=== PATIENT | female | born 1980 | race Caucasian/White ===

== ENCOUNTER 2017-03-08 07:59 | Inpatient (IN) ==
[2017-03-08] MEDS ORDERED: 0.9 % Sodium Chloride 1,000 ML IVC ONE (08:05)
--- NOTE | 2017-03-08 08:06 | Emergency Department Note ---
Disposition Clinical Impression: Headache, Ataxia, Dysphagia, Hyperglycemia Disposition: Admitted As Inpatient Condition: Fair General Adult HPI - General Chief complaint: ED Headache Stated complaint: CARRASCO, Difficulty walking Time Seen by Provider: 03/08/17 08:01 - Related Data Home Medications Medication Instructions Recorded Confirmed GlipiZIDE [Glipizide ER] 20 mg PO 1400 03/08/17 03/08/17 Metformin HCl [Metformin HCl ER] 1,000 mg PO BID 03/08/17 03/08/17 Allergies Allergy/AdvReac Type Severity Reaction Status Date / Time No Known Allergies Allergy Verified 03/08/17 08:18 Course Vital Signs Temperature 97.5 F L 03/08/17 08:01 Pulse Rate 90 03/08/17 08:01 Respiratory Rate 18 03/08/17 08:01 Blood Pressure 132/96 03/08/17 08:01 O2 Sat by Pulse Oximetry 98 03/08/17 08:01 Temperature 97.5 F L 03/08/17 08:01 Pulse Rate 78 03/08/17 09:39 Respiratory Rate 0 03/08/17 10:31 Blood Pressure 0/0 03/08/17 10:31 O2 Sat by Pulse Oximetry 98 03/08/17 09:39 Oxygen Delivery Oxygen Delivery Room Air Medical Decision Making - Lab Data Result diagrams: 03/08/17 08:15 03/08/17 08:15 Lab Results 03/08/17 03/08/17 03/08/17 Range/Units 08:15 08:15 08:15 WBC 8.5 (4.3-11.1) K/mcL RBC 4.68 (3.82-4.97) M/mcL Hgb 12.1 (11.5-15.4) g/dL Hct 37.6 (35.3-44.9) % MCV 80.3 L (83.0-100.0) fL MCH 25.9 L (28.0-33.3) pg MCHC 32.2 (31.6-35.5) g/dL RDW 14.7 H (11.5-14.5) % Plt Count 453 H (140-400) K/mcL MPV 10.2 (9.4-12.4) fL Immature Gran % 0.4 (0-4) % Seg Neutrophils % 70.4 % Lymphocytes % 22.1 % Monocytes % 5.8 % Eosinophils % 0.9 % Basophils % 0.4 % Neutrophils # 6.0 (1.6-8.9) K/mcL Lymphocytes # 1.9 (0.6-4.6) K/mcL Monocytes # 0.5 (0.0-1.3) K/mcL Eosinophils # 0.1 (0.0-0.6) K/mcL Basophils # 0.0 (0.0-0.2) K/mcL Immature Plt Fraction 3.0 (1.1-6.1) % Sodium 136 (136-145) mEq/L Potassium 4.4 (3.5-4.5) mEq/L Chloride 103 (98-109) mEq/L Carbon Dioxide 24 (19-29) mEq/L BUN 12 (7-20) mg/dL Creatinine 0.83 (0.57-1.11) mg/dL Est GFR ( Amer) > 60 (> 60) Est GFR (Non-Af Amer) > 60 (> 60) BUN/Creatinine Ratio 14 (6-26) Glucose 215 H (70-99) mg/dL Calculated Osmolality 288 (280-300) Calcium 10.0 (8.6-10.8) mg/dL Troponin I 0.00 (0-0.03) ng/mL Urine Color (Yellow) Urine Clarity (Clear) Urine pH (5.0-8.0) pH Units Ur Specific [place] (1.010-1.025) Urine Protein (Neg-Trace) mg/dL Urine Glucose (UA) (Normal) mg/dL Urine Ketones (Negative) mg/dL Urine Blood (Negative) Urine Nitrite (Negative) Urine Bilirubin (Negative) Urine Urobilinogen (Normal) mg/dL Ur Leukocyte Esterase (Negative) Urine Microscopic RBC (0-3) per hpf Urine Microscopic WBC (0-3) per hpf Ur Squamous Epith Cells (None-Few) per lpf Urine Bacteria (None-Few) per hpf Hyaline Casts (None-Few) per lpf Urine Test (Negative) 03/08/17 03/08/17 Range/Units 08:50 08:53 WBC (4.3-11.1) K/mcL RBC (3.82-4.97) M/mcL Hgb (11.5-15.4) g/dL Hct (35.3-44.9) % MCV (83.0-100.0) fL MCH (28.0-33.3) pg MCHC (31.6-35.5) g/dL RDW (11.5-14.5) % Plt Count (140-400) K/mcL MPV (9.4-12.4) fL Immature Gran % (0-4) % Seg Neutrophils % % Lymphocytes % % Monocytes % % Eosinophils % % Basophils % % Neutrophils # (1.6-8.9) K/mcL Lymphocytes # (0.6-4.6) K/mcL Monocytes # (0.0-1.3) K/mcL Eosinophils # (0.0-0.6) K/mcL Basophils # (0.0-0.2) K/mcL Immature Plt Fraction (1.1-6.1) % Sodium (136-145) mEq/L Potassium (3.5-4.5) mEq/L Chloride (98-109) mEq/L Carbon Dioxide (19-29) mEq/L BUN (7-20) mg/dL Creatinine (0.57-1.11) mg/dL Est GFR ( Amer) (> 60) Est GFR (Non-Af Amer) (> 60) BUN/Creatinine Ratio (6-26) Glucose (70-99) mg/dL Calculated Osmolality (280-300) Calcium (8.6-10.8) mg/dL Troponin I (0-0.03) ng/mL Urine Color Yellow (Yellow) Urine Clarity Cloudy A (Clear) Urine pH 6.0 (5.0-8.0) pH Units Ur Specific [place] 1.026 H (1.010-1.025) Urine Protein Negative (Neg-Trace) mg/dL Urine Glucose (UA) Normal (Normal) mg/dL Urine Ketones Negative (Negative) mg/dL Urine Blood Negative (Negative) Urine Nitrite Negative (Negative) Urine Bilirubin Negative (Negative) Urine Urobilinogen Normal (Normal) mg/dL Ur Leukocyte Esterase Trace H (Negative) Urine Microscopic RBC 0-3 (0-3) per hpf Urine Microscopic WBC 5-15 H (0-3) per hpf Ur Squamous Epith Cells Many H (None-Few) per lpf Urine Bacteria Moderate H (None-Few) per hpf Hyaline Casts None Seen (None-Few) per lpf Urine Test Negative (Negative) Attestation Statement - Attestation Attestation: I examined this patient and my medical decision-making was reviewed with the Resident Physician. I agree with the documented findings, disposition and treatment plan as described except to the extent set forth below. Face to face time provided She complains of dyspnea, headache, unsteady gait that started this morning. She is a poor historian. History of type 2 diabetes. Does not appear in any acute distress on exam. Family bedside. Patient seen in conjunction with the resident physician Dr. Garrett 09:06: Last known well was last night prior to the patient going to bed. This precludes her from breathing stroke alert candidate
--- NOTE | 2017-03-08 08:12 | Emergency Department Note ---
Disposition Clinical Impression: Ataxia, Hyperglycemia Headache Qualifiers: Headache type: unspecified Headache chronicity pattern: unspecified pattern Intractability: not intractable Qualified Code(s): R51 - Headache Dysphagia Qualifiers: Dysphagia type: unspecified Qualified Code(s): R13.10 - Dysphagia, unspecified Disposition: Admitted As Inpatient Condition: Fair Referrals: Kirt Flood MD [Primary Care Provider] - Forms: ED Satisfaction Letter Time of Disposition: 09:58 Headache HPI - General Chief Complaint: ED Headache Stated Complaint: CARRASCO, Difficulty walking Time Seen by Provider: 03/08/17 08:01 Source: patient, EMS Mode of arrival: EMS Limitations: no limitations Nursing Notes Reviewed: Yes Vital Signs Reviewed: Yes - History of Present Illness HPI Narrative: 36-year-old female with a history of diabetes, developmental delay presents for evaluation of headache, short of breath, and difficulty ambulation. Patient noted symptoms started this morning. Patient's history is confirmed by the mother at bedside. Patient's last known well was last night before going to bed. Patient states she has had a left orbital headache. No nausea or vomiting. Patient's also noted some difficulty with breathing and walking this morning. Mother notes that the patient seemed to be stumbling. Patient denies history of this in the past. Patient denies a history of alcohol use or any other substances. Patient denies history of strokes. Patient is a poor historian. Denies any facial droop. Does have slurred speech at baseline which is unchanged and verified by the mother. No history of CVAs. No back pain. The only change in medication is increasing her glipizide from 10 to 20 mg daily 8 days ago. - Related Data Allergies Allergy/AdvReac Type Severity Reaction Status Date / Time No Known Allergies Allergy Verified 03/08/17 08:18 All systems ED: reviewed and negative except as stated. Constitutional: Reports: as per HPI. Denies: fever Eyes: Reports: as per HPI ENT ED: Reports: as per HPI Cardiovascular: Reports: as per HPI. Denies: chest pain Respiratory: Reports: as per HPI Gastrointestinal: Reports: as per HPI. Denies: nausea, hematochezia Genitourinary: Reports: as per HPI Musculoskeletal: Reports: as per HPI Integumentary: Reports: as per HPI Neurological: Reports: as per HPI, headache. Denies: weakness, numbness Psychiatric: Reports: as per HPI Endocrine: Reports: as per HPI Hematological/Lymphatic: Reports: as per HPI Allergic/Immunologic: Reports: as per HPI Headache PMH - Past Medical History Medical history: Reports: diabetes Physical Exam - General Limitations: no limitations General appearance: alert, in no apparent distress - Head Head exam: atraumatic, normocephalic, normal inspection - Eye Eye exam: Present: normal appearance, PERRL, EOMI - ENT ENT exam: normal exam, mucous membranes moist - Expanded ENT Exam External ear exam: Present: normal external inspection Nose exam: negative: rhinorrhea Mouth exam: Present: normal external inspection Throat exam: Present: normal inspection - Neck Neck exam: Present: normal inspection, trachea midline - Chest Chest inspection: Present: normal inspection - Respiratory Respiratory exam: Present: normal lung sounds bilaterally. Absent: respiratory distress - Cardiovascular Cardiovascular exam: Present: regular rate, normal rhythm - Abdominal Exam Abdominal exam: Present: soft, Non-Tender. Absent: guarding, rebound - Extremities Exam Extremities exam: Present: normal inspection. Absent: pedal edema - Back Exam Back exam: Present: normal inspection - Neurological Exam Neurological exam: Present: alert, oriented X3, CN II-XII intact, other (Ataxic gait) - Expanded Neurological Exam Patient oriented to: Present: person, place, time Speech: Present: fluid speech Cranial nerves: EOM function (II, III, IV, ): Normal, facial sensation (V): Normal, facial palsy (VII): Normal, spinal accessory function (XI): Normal, tongue deviation (XII): Normal Cerebellar function: finger to nose: Normal Cerebellar function: ataxic gait (with leaning to the left) Motor strength - LUE: 5/5 Motor strength - RUE: 5/5 Motor strength - LLE: 5/5 Motor strength - RLE: 5/5 Upper motor neuron exam: pronator drift: Absent bilaterally Sensory exam upper extremity: light touch: Normal Sensory exam lower extremity: light touch: Normal DTR: patellar (L): 1+, patellar (R): 1+ Coma Scale Eye Opening: Spontaneous Coma Scale Motor Response: Obeys Commands Coma Scale Verbal Response: Oriented Coma Scale Total: 15 - Skin Skin exam: Present: warm, dry, intact, normal color Course Course Narrative: Patient seen and examined. Patient's NIH score is 0. Patient is not a stroke alert given the timeframe. Patient's last and well was less than prior to bedtime. Patient will receive a CT of the head, screening cardiopulmonary valuation with chest x-ray EKG and troponin. Patient also received basic lab work. IV fluid hydration symptomatically treatment. Patient be observed in the emergency department. Disposition pending. - Reevaluation(s) Reevaluation #1: Patient has difficulty with ambulation and gait disturbance to the left. Patient does have slurred speech and this is at the patient's baseline. Patient cannot tolerate oral medication. Time: 09:16 Reevaluation #2: Plan of care updated with the patient feels the family. Patient now states she cannot swallow. This is not anaphylaxis. Time: 09:21 Reevaluation #3: Spoke with hospitalist would like a neurologist consult Time: 09:47 - Consultations Consultation #1: Spoke with Dr. Carlson who recommended getting an MR of the brain as well as C- spine without contrast. Time: 09:52 Vital Signs Temperature 97.5 F L 03/08/17 08:01 Pulse Rate 90 03/08/17 08:01 Respiratory Rate 18 03/08/17 08:01 Blood Pressure 132/96 03/08/17 08:01 O2 Sat by Pulse Oximetry 98 03/08/17 08:01 Temperature 97.5 F L 03/08/17 08:01 Pulse Rate 78 03/08/17 09:39 Respiratory Rate 18 03/08/17 09:39 Blood Pressure 130/82 03/08/17 09:39 O2 Sat by Pulse Oximetry 98 03/08/17 09:39 Oxygen Delivery Oxygen Delivery Room Air Headache - MDM Narrative Medical decision making narrative: 36-year-old female history of developmental delay presents for evaluation of multiple symptoms. Onset of symptoms was this morning. Notes a mild left orbital headache as well as difficulty walking. Patient was not a stroke alert given the timeframe was outside of any therapeutic window. Patient's last known well was last night prior to bedtime. This was confirmed by the mother at bedside. Patient states she has also had difficulty breathing. Patient had a chest x-ray showed no acute abnormality. Patient's EKG shows T-wave inversions in anterior leads with no prior comparison. Patient does not have risk factors for PE and is pulmonary embolism rule out criteria negative. Patient's vitals are stable. Patient's labs showed no acute outer allergies besides some hyperglycemia. Patient's urine shows no signs of infection and she is not symptomatic. Patient does have a neurologic exam that is concerning. Patient does have an ataxic gait primary to the left. Patient has a nonfocal exam otherwise. Patient has good finger to nose. Patient does have slurred speech was at her baseline with her developmental delay. Patient had a head CT which shows no acute abnormalities. Patient would likely need advanced imaging with an MRI. Patient was offered a rectal aspirin for concerns of TIA as she states she cannot swallow. Patient airway shows no signs of compromise. This is not meningitis as the patient has not had a fever or nuchal rigidity. No back pain. This plan of care was discussed with the patient as well as mother at bedside who agree. - Lab Data Lab results reviewed: Yes I reviewed the patient's lab results. Result diagrams: 03/08/17 08:15 03/08/17 08:15 Lab Results 03/08/17 03/08/17 03/08/17 Range/Units 08:15 08:15 08:15 WBC 8.5 (4.3-11.1) K/mcL RBC 4.68 (3.82-4.97) M/mcL Hgb 12.1 (11.5-15.4) g/dL Hct 37.6 (35.3-44.9) % MCV 80.3 L (83.0-100.0) fL MCH 25.9 L (28.0-33.3) pg MCHC 32.2 (31.6-35.5) g/dL RDW 14.7 H (11.5-14.5) % Plt Count 453 H (140-400) K/mcL MPV 10.2 (9.4-12.4) fL Immature Gran % 0.4 (0-4) % Seg Neutrophils % 70.4 % Lymphocytes % 22.1 % Monocytes % 5.8 % Eosinophils % 0.9 % Basophils % 0.4 % Neutrophils # 6.0 (1.6-8.9) K/mcL Lymphocytes # 1.9 (0.6-4.6) K/mcL Monocytes # 0.5 (0.0-1.3) K/mcL Eosinophils # 0.1 (0.0-0.6) K/mcL Basophils # 0.0 (0.0-0.2) K/mcL Immature Plt Fraction 3.0 (1.1-6.1) % Sodium 136 (136-145) mEq/L Potassium 4.4 (3.5-4.5) mEq/L Chloride 103 (98-109) mEq/L Carbon Dioxide 24 (19-29) mEq/L BUN 12 (7-20) mg/dL Creatinine 0.83 (0.57-1.11) mg/dL Est GFR ( Amer) > 60 (> 60) Est GFR (Non-Af Amer) > 60 (> 60) BUN/Creatinine Ratio 14 (6-26) Glucose 215 H (70-99) mg/dL Calculated Osmolality 288 (280-300) Calcium 10.0 (8.6-10.8) mg/dL Troponin I 0.00 (0-0.03) ng/mL Urine Color (Yellow) Urine Clarity (Clear) Urine pH (5.0-8.0) pH Units Ur Specific [place] (1.010-1.025) Urine Protein (Neg-Trace) mg/dL Urine Glucose (UA) (Normal) mg/dL Urine Ketones (Negative) mg/dL Urine Blood (Negative) Urine Nitrite (Negative) Urine Bilirubin (Negative) Urine Urobilinogen (Normal) mg/dL Ur Leukocyte Esterase (Negative) Urine Microscopic RBC (0-3) per hpf Urine Microscopic WBC (0-3) per hpf Ur Squamous Epith Cells (None-Few) per lpf Urine Bacteria (None-Few) per hpf Hyaline Casts (None-Few) per lpf Urine Test (Negative) 03/08/17 03/08/17 Range/Units 08:50 08:53 WBC (4.3-11.1) K/mcL RBC (3.82-4.97) M/mcL Hgb (11.5-15.4) g/dL Hct (35.3-44.9) % MCV (83.0-100.0) fL MCH (28.0-33.3) pg MCHC (31.6-35.5) g/dL RDW (11.5-14.5) % Plt Count (140-400) K/mcL MPV (9.4-12.4) fL Immature Gran % (0-4) % Seg Neutrophils % % Lymphocytes % % Monocytes % % Eosinophils % % Basophils % % Neutrophils # (1.6-8.9) K/mcL Lymphocytes # (0.6-4.6) K/mcL Monocytes # (0.0-1.3) K/mcL Eosinophils # (0.0-0.6) K/mcL Basophils # (0.0-0.2) K/mcL Immature Plt Fraction (1.1-6.1) % Sodium (136-145) mEq/L Potassium (3.5-4.5) mEq/L Chloride (98-109) mEq/L Carbon Dioxide (19-29) mEq/L BUN (7-20) mg/dL Creatinine (0.57-1.11) mg/dL Est GFR ( Amer) (> 60) Est GFR (Non-Af Amer) (> 60) BUN/Creatinine Ratio (6-26) Glucose (70-99) mg/dL Calculated Osmolality (280-300) Calcium (8.6-10.8) mg/dL Troponin I (0-0.03) ng/mL Urine Color Yellow (Yellow) Urine Clarity Cloudy A (Clear) Urine pH 6.0 (5.0-8.0) pH Units Ur Specific [place] 1.026 H (1.010-1.025) Urine Protein Negative (Neg-Trace) mg/dL Urine Glucose (UA) Normal (Normal) mg/dL Urine Ketones Negative (Negative) mg/dL Urine Blood Negative (Negative) Urine Nitrite Negative (Negative) Urine Bilirubin Negative (Negative) Urine Urobilinogen Normal (Normal) mg/dL Ur Leukocyte Esterase Trace H (Negative) Urine Microscopic RBC 0-3 (0-3) per hpf Urine Microscopic WBC 5-15 H (0-3) per hpf Ur Squamous Epith Cells Many H (None-Few) per lpf Urine Bacteria Moderate H (None-Few) per hpf Hyaline Casts None Seen (None-Few) per lpf Urine Test Negative (Negative) - Radiology Data Radiology results reviewed: Yes I reviewed the patient's radiology results. Head CT 03/08/17 08:06 IMPRESSION: No acute intracranial abnormality. D/ / Eugene Cotton / Eugene Cotton Interpreting Provider: Eugene Cotton Chest X-Ray 03/08/17 08:09 IMPRESSION: No acute process. D/ / Segundo Silverio MD / Segundo Silverio MD Interpreting Provider: Segundo Silverio MD - EKG Data EKG attestation: Yes I reviewed and interpreted this EKG. EKG shows normal: sinus rhythm Rate: normal Rhythm: NSR [place]/QRS: normal Q waves: III T wave inversions noted in: III, v1, v2 Interpretation: no acute changes, nonspecific ST-T wave changes S.B.A.R. - S.B.A.R. Situation: Demographics Background: Presenting Complaint Assessment: Vital Signs, Course and respsone to treatment, Patient/Family Expectation Recommendation: Barrier(s) to disposition, Recommendation based on pending studies, treatments, or consults S.B.A.R. Report Given to: Therese De La [email or web address].RAngel Repor Time: 09:46
[2017-03-08 08:24] LABS: Basophils % 0.4 %; Eosinophils # 0.1 K/mcL (0.0-0.6); Eosinophils % 0.9 %; Hematocrit 37.6 % (35.3-44.9); Hemoglobin 12.1 g/dL (11.5-15.4); Immature Granulocytes % 0.4 % (0-4); Lymphocytes # 1.9 K/mcL (0.6-4.6); Lymphocytes % 22.1 %; Mean Corpuscular HGB Conc 32.2 g/dL (31.6-35.5); Mean Corpuscular Hemoglobin 25.9 pg (28.0-33.3); Mean Corpuscular Volume 80.3 fL (83.0-100.0); Mean Platelet Volume 10.2 fL (9.4-12.4); Monocytes # 0.5 K/mcL (0.0-1.3); Monocytes % 5.8 %; Platelet Count 453 K/mcL (140-400); Red Blood Count 4.68 M/mcL (3.82-4.97); Red Cell Distribution Width 14.7 % (11.5-14.5); Segmented Neutrophils % 70.4 %
[2017-03-08 08:35] LABS: BUN/Creatinine Ratio 14 (6-26); Blood Urea Nitrogen 12 mg/dL (7-20); Carbon Dioxide 24 mEq/L (19-29); Chloride 103 mEq/L (98-109); Glucose 215 mg/dL (70-99); Osmolality,Calculated 288 (280-300); Potassium 4.4 mEq/L (3.5-4.5); Sodium 136 mEq/L (136-145); eGFR For African Americans > 60 (> 60); eGFR For Non-African Americans > 60 (> 60)
[2017-03-08] MEDS: Acetaminophen 325 MG TABLET PO ONE ×2 (08:56→09:05)
[2017-03-08 09:02] LABS: Bilirubin,Urine Negative (Negative); Blood,Urine Negative (Negative); Clarity,Urine Cloudy (Clear); Color,Urine Yellow (Yellow); Glucose,Urine (UA) Normal (Normal); Ketones,Urine Negative (Negative); Leukocyte Esterase,Urine Trace (Negative); Nitrite,Urine Negative (Negative); Protein,Urine Negative (Neg-Trace); Specific Gravity,Urine 1.026 (1.010-1.025); Urobilinogen,Urine Normal (Normal)
[2017-03-08 09:07] LABS: Bacteria,Urine Moderate per hpf (None-Few); Hyaline Casts,Urine None Seen per lpf (None-Few); RBC,Urine 0-3 per hpf (0-3); Squamous Epithelial Cell,Urine Many per lpf (None-Few)
[2017-03-08] MEDS ORDERED: Naloxone 0.4 MG/ML INJ IVP PRN ×2 (12:14→19:38)
[2017-03-08] MEDS ORDERED: Dextrose Gel 15 GM PO PRN ×4 (12:54→19:38)
[2017-03-08] MEDS ORDERED: D5% in Water 1,000 ML IVC PRN ×2 (12:54→19:38)
[2017-03-08] MEDS ORDERED: *HR* Dextrose 50 % in Water (Syg) 50 ML SYRINGE IVP PRN ×2 (12:54→19:38)
--- NOTE | 2017-03-08 12:55 | Internal Med History&Physical ---
<Therese Dowell - Last Filed: 03/08/17 14:14> Date of Encounter: 03/08/17 Time of Encounter: 12:55 Assessment and Plan (1) CVA (cerebral vascular accident) Current visit: Yes Status: Acute 1 patient experienced difficulty swallowing and ataxia appears symptoms started around [address] of head was negative however MRI Findings suggesting a a small recent infarct in the posterior leftward aspect of the medulla 2 neurology has been consulted and has seen the patient 3 we will continue with aspirin rectal suppository 4 we will check lipid profile 5 nothing by mouth-speech eval 6 PT OT eval 7 we will obtain an echo 8 continuous cardiac monitoring 9 fall precautions Qualifiers: CVA mechanism: unspecified Qualified Code(s): I63.9 - Cerebral infarction, unspecified (2) Dysphagia Current visit: Yes Status: Acute 1 nothing by mouth we will have speech therapy evaluate patient Qualifiers: Dysphagia type: unspecified Qualified Code(s): R13.10 - Dysphagia, unspecified (3) DVT prophylaxis Current visit: Yes Status: Acute SCD (4) Diabetes Current visit: Yes Status: Acute 1 Accu-Cheks every 6 hours while nothing by mouth Qualifiers: Diabetes mellitus type: type 2 Diabetes mellitus complication status: without complication Diabetes mellitus chcf insulin use: without intermediate designer use Qualified Code(s): E11.9 - Type 2 diabetes mellitus without complications Internal Medicine - H&P: HPI Chief complaint: ataxia Admitted From: Emergency Dept Plans for Post Hospital Care: Home History of present illness: Ms. Head is a 36 year old female past medical history of MRDD diabetes. Information has been obtained from mother and medical records due to patient's limited cognitive state. According to the mother the patient was up at approximately 2 AM this morning on the computer, she attempted to eat a cookie found she was not able to swallow. She did not want to wake her parents so she went to bed. This morning upon waking the patient was having difficulty ambulating. She was leaning to her left side and was having difficulty moving her left leg. She she denies any fevers chills nausea vomiting chest pain or diarrhea. No past history of strokes. Recent medication change glipizide 10 mg to 20 mg daily this occurred approximately 8 days ago. Denies any recent alcohol or substance use. Mother became concerned that patient to the ER for evaluation. Lab work was obtained which was unremarkable. CT of head was negative for any intracranial abnormalities. She was seen by neurology in the ER. MRI of head did reveal Findings suggesting a a small recent infarct in the posterior leftward aspect of the medulla. She has been a further evaluation. Presently patient does not appear to be respiratory distress she denies any chest pain or abdominal pain. She is alert and oriented 3 she attempts to follow simple commands. Cranial nerves II through XII are intact no facial droop equal strength in all 4 extremities. Romberg is negative. I did have the patient ambulate she was unable to walk a straight line she was leaning to her left side and bumping into the [place]. She is hemodynamically stable at this time. I reviewed this case with Dr. Byrne who agrees with plan. Past Med Surg Social Fam HX - Past Medical History Medical history: diabetes Psychiatric history: no psych history - Past Surgical History Surgical History: SYLVESTER/BSO - Social History Smoking Status: Never smoker Smokeless Tobacco Status: No Alcohol use: none Drug use: none - Family History Mother History Unknown: Yes Father History Unknown: Yes Internal Medicine - H&P: Meds GlipiZIDE [Glipizide ER] 20 mg PO 1400 03/08/17 [History] Metformin HCl [Metformin HCl ER] 1,000 mg PO BID 03/08/17 [History] 3 Allergy/AdvReac Type Severity Reaction Status Date / Time No Known Allergies Allergy Verified 03/08/17 08:18 ROS unobtainable: due to mental status All Systems PM: A 10-system review of systems was performed and is negative for pertinent findings except as documented above in the HPI. - Constitutional Vitals: Temp Pulse Resp BP Pulse Ox 98.8 F 94 18 130/76 97 03/08/17 11:31 03/08/17 11:31 03/08/17 11:31 03/08/17 11:31 03/08/17 11:31 General appearance: Present: A&O X 3, answers questions appropriately - Head Head exam: Present: atraumatic, normocephalic - Eye Eye exam: Present: PERRL, conjuntiva pink, sclera anicteric Pupils: Present: PERRL - Neck Neck exam general surgery: Present: supple, trachea midline. Absent: lymphadenopathy - Respiratory Respiratory exam: Present: CTAB. Absent: accessory muscle use, rales, rhonchi, wheezes - Cardiovascular Cardiovascular exam: Present: RRR, +S1, +S2. Absent: diastolic murmur, gallop, rubs, systolic murmur - GI/Abdominal GI/Abdominal exam: Present: normal bowel sounds, soft, no peritoneal signs. Absent: distended, tenderness - Extremities Exam Extremities exam: Present: warm, radial pulses palpable and symmetrical. Absent : calf tenderness, cyanotic, pedal edema - Neurological Exam Neurological exam: Present: abnormal gait, CN II-XII intact, oriented X3, no focal deficits, strengths equal and symetr throughout. Absent: pronater drift, facial droop, speech deficit - Skin Skin exam: Present: dry, intact Internal Med - H&P Results - Labs CBC & Chem 7: 03/08/17 08:15 03/08/17 08:15 - EKG Data EKG shows normal: sinus rhythm - EKG Data Prior EKG available for review: no - Diagnostic Studies Other Images Additional comments: Head CT 03/08/17 08:06 IMPRESSION: No acute intracranial abnormality. D/ / Eugene Cotton / Eugene Cotton Interpreting Provider: Eugene Cotton Chest X-Ray 03/08/17 08:09 IMPRESSION: No acute process. D/ / Segundo Silverio MD / Segundo Silverio MD Interpreting Provider: Segundo Silverio MD Brain MRI 03/08/17 09:51 IMPRESSION: Findings suggesting a a small recent infarct in the posterior leftward aspect of the medulla on axial diffusion image 8. Otherwise, a few punctate foci of increased signal are noted in the white matter bilaterally without associated additional hyperintense diffusion signal. Dr. Carlson notified at 11:43 p.m. D/ / Eugene Cotton / Eugene Cotton Interpreting Provider: Eugene Cotton Cervical Spine MRI 03/08/17 09:51 IMPRESSION: Mild congenital spinal canal stenosis. Moderate left foraminal stenosis at C4-5. Additional mild multilevel neural foraminal stenosis is identified as noted above. No evidence of focal disc protrusion or cord compression. D/ / 03/08/2017 11:18:19 Segundo Silverio MD / Veena Welch Interpreting Provider: Segundo Silverio MD <Christiano Byrne Irina - Last Filed: 03/08/17 19:39> Date of Encounter: 03/08/17 Internal Medicine - H&P: HPI History of present illness: Ms. Head is a 36 year old female All Systems PM: A 10-system review of systems was performed and is negative for pertinent findings except as documented above in the HPI. - Constitutional Vitals: Temp Pulse Resp BP Pulse Ox 98.5 F 75 14 132/94 95 03/08/17 17:52 03/08/17 17:52 03/08/17 17:52 03/08/17 17:52 03/08/17 17:52 Internal Med - H&P Results - Labs CBC & Chem 7: 03/08/17 08:15 03/08/17 08:15 Labs: Cardiac Enzymes 03/08/17 Range/Units 14:18 Troponin I 0.01 (0-0.03) ng/mL - Attending Attestation I have personally performed a face to face evaluation on this patient. I have reviewed and agree with the care plan. History and Exam by me shows: 36 y/o with acute cerebellar CVA Pt ataxic on exam. Falls to the left. Heart reg Lungs clear Abd soft No edema Agree with plan as outlined above.
--- NOTE | 2017-03-08 14:13 | Neurology - Consult Note ---
Date of Encounter: 03/08/17 Time of Encounter: 13:06 Assessment and Plan (1) Acute brainstem infarction Current Visit: Yes Status: Acute This 36 years old female who has an history of diabetes for sometimes not very well controlled noted to have an acute infarct Medula On MRI of the brain, without any other associated edema or hemorrhage. This likely small vessel disease related to hypertension and diabetes. But because of her younger age group I think we do need to exclude other etiologies and factors as well. There is no apparent family history of early stroke but I think we do need to do a thrombotic tendency profile to make sure that there is no other underlying etiology for her stroke and a younger age. There is some atrophy noted on her MRI of the brain which is likely related to her history of mild MRDD and cerebral palsy At the moment she did not have any significant neurological deficit except some mild difficulty with swallowing and some difficulty with her gait and balance. Currently she is nothing by mouth will repeat a swallowing evaluation in the meantime continue other medication particularly rectal aspirin 325 mg, once she passes swallowing evaluation it can be changed to oral route. Need to monitor her blood pressure and blood sugar and keep it in a stable range. She would also need a stroke workup including carotid duplex as well as an echocardiogram. Patient also noted to have significant apnea that could be an independent risk factors for the stroke she would require sleeping his studies that can be done as an outpatient basis. Discussed with mother in great detail will follow the patient with you thank you very much for your kind consultation (2) Ataxia Current Visit: Yes Status: Acute Related to the stroke. She will require physical therapy. (3) Dysphagia Current Visit: Yes Status: Acute Would need repeat swallowing evaluation in the next day or so Qualifiers: Dysphagia type: unspecified Qualified Code(s): R13.10 - Dysphagia, unspecified History of Present Illness HPI: Ms. Head is a 36 year old female with past medical history of MRDD diabetes. brought in by mother due to difficulty in swallowing and difficulty with gait. according to the mother the patient was up at approximately 2 AM this morning on the computer, she attempted to eat a cookie found she was not able to swallow. in the morning upon awaking the patient was having difficulty ambulating. noted to be leaning to left side and having difficulty moving her left leg. beside that no difficultly in speech or any vision, She she denies any fevers chills nausea vomiting chest pain or diarrhea. Mother became concerned that patient to the ER for evaluation. Lab work was obtained which was unremarkable. CT of head was negative for any intracranial abnormalities. MRi of head was recommended by neurology, MRI of head did reveal Findings suggesting a a small recent infarct in the posterior leftward aspect of the medulla. now she is admitted for further evaluation. she denies any chest pain or abdominal pain. Past Med Surg Social Fam HX - Past Medical History Medical history: diabetes Psychiatric history: no psych history - Past Surgical History Surgical History: SYLVESTER/BSO - Social History Smoking Status: Never smoker Smokeless Tobacco Status: No Alcohol use: none Drug use: none - Family History Mother History Unknown: Yes Father History Unknown: Yes Medications and Allergies GlipiZIDE [Glipizide ER] 20 mg PO 1400 03/08/17 [History] Metformin HCl [Metformin HCl ER] 1,000 mg PO BID 03/08/17 [History] 3 Allergy/AdvReac Type Severity Reaction Status Date / Time No Known Allergies Allergy Verified 03/08/17 08:18 All Systems: A 10-system review of systems was performed and is negative for pertinent findings except as documented above in the HPI. base line pt is mild slow has developmental delay, but quite independent, mild CP as per mother Physical Examination - Vital Signs Vital Signs: Initial Vital Signs Temp Pulse Resp BP Pulse Ox 97.5 F L 90 18 132/96 98 03/08/17 08:01 03/08/17 08:01 03/08/17 08:01 03/08/17 08:01 03/08/17 08:01 - Constitutional General appearance: comfortable - Neurologic Sensorimotor examination: intact Detailed motor examination: full strength in all major muscle groups Motor examination - right side: 5/5: deltoids, biceps, triceps, wrist flexion, wrist extension, disassembler product, hip flexors, tibialis Anterior, quadriceps, toe extension (EHL), plantarflexion Motor examination - left side: 5/5: deltoids, biceps, triceps, wrist flexion, wrist extension, hip flexors, disassembler product, quadriceps, tibialis Anterior, toe extension (EHL), plantarflexion Detailed sensory examination: intact Reflex and gait examination: intact Reflexes: Biceps: 1+, Triceps: 1+, Brachioradialis: 1+, Patella: 1+, Achilles: 1 + Mental Status Examination: awake, alert, oriented to person, oriented to place, oriented to time, follows commands appropriately, answers questions appropriately, follows simple commands, localizes noxious stimulation Cranial nerve examination: PERRL, EOMI, visual guzman intact, no facial asymmetry is present, no dysarthria, hearing is intact symmetrically (Mild dysmetria on finger to nose on right ) Results - Laboratory Findings CBC and BMP: 03/08/17 08:15 03/08/17 08:15 Abnormal lab findings: Abnormal lab results MCV 80.3 fL (83.0-100.0) L 03/08/17 08:15 MCH 25.9 pg (28.0-33.3) L 03/08/17 08:15 RDW 14.7 % (11.5-14.5) H 03/08/17 08:15 Plt Count 453 K/mcL (140-400) H 03/08/17 08:15 Glucose 215 mg/dL (70-99) H 03/08/17 08:15 Urine Clarity Cloudy (Clear) A 03/08/17 08:50 Ur Specific [place] 1.026 (1.010-1.025) H 03/08/17 08:50 Ur Leukocyte Esterase Trace (Negative) H 03/08/17 08:50 Urine Microscopic WBC 5-15 per hpf (0-3) H 03/08/17 08:50 Ur Squamous Epith Cells Many per lpf (None-Few) H 03/08/17 08:50 Urine Bacteria Moderate per hpf (None-Few) H 03/08/17 08:50 - Diagnostic Findings Additional findings: MRi conforms medulary infarct Consult Discharge Plan - Plan Referrals: Kirt Flood MD [Primary Care Provider] -
[2017-03-08] MEDS ORDERED: 0.9 % Sodium Chloride 1,000 ML IVC SCH (15:30)
[2017-03-08] MEDS ORDERED: Insulin LISPRO 300 UNITS/3 ML VIAL SQ SCH (18:00)
[2017-03-09] MEDS: Insulin LISPRO 300 UNITS/3 ML VIAL SQ SCH ×5 (01:45→22:32)
[2017-03-09 03:48] LABS: Basophils # 0.1 K/mcL (0.0-0.2); Basophils % 0.6 %; Eosinophils # 0.1 K/mcL (0.0-0.6); Eosinophils % 0.9 %; Hematocrit 36.4 % (35.3-44.9); Immature Granulocytes % 0.4 % (0-4); Lymphocytes # 2.4 K/mcL (0.6-4.6); Lymphocytes % 26.6 %; Mean Corpuscular Hemoglobin 26.5 pg (28.0-33.3); Mean Corpuscular Volume 80.4 fL (83.0-100.0); Mean Platelet Volume 9.7 fL (9.4-12.4); Monocytes # 0.6 K/mcL (0.0-1.3); Monocytes % 6.3 %; Neutrophils # 5.9 K/mcL (1.6-8.9); Platelet Count 366 K/mcL (140-400); Red Blood Count 4.53 M/mcL (3.82-4.97); Red Cell Distribution Width 14.8 % (11.5-14.5); Segmented Neutrophils % 65.2 %
[2017-03-09 04:01] LABS: BUN/Creatinine Ratio 11 (6-26); Blood Urea Nitrogen 9 mg/dL (7-20); Calcium 9.5 mg/dL (8.6-10.8); Carbon Dioxide 27 mEq/L (19-29); Chloride 104 mEq/L (98-109); Chol/HDL Ratio 7.4 (0-4.9); Cholesterol 236 mg/dL (< 200); Glucose 156 mg/dL (70-99); HDL Cholesterol 32 mg/dL (40-59); LDL Cholesterol,Calculated 155 mg/dL (0-99); Osmolality,Calculated 286 (280-300); Potassium 4.4 mEq/L (3.5-4.5); Sodium 137 mEq/L (136-145); Triglycerides 245 mg/dL (< 150); eGFR For African Americans > 60 (> 60); eGFR For Non-African Americans > 60 (> 60)
--- NOTE | 2017-03-09 08:09 | Internal Med Progress Note ---
<Chava Hobson - Last Filed: 03/09/17 12:41> Date of Encounter: 03/09/17 Time of Encounter: 11:30 - Assessment and plan (1) Acute brainstem infarction Current Visit: Yes Status: Acute Assessment and plan: lidia 2/2 to DM, HTN Sxs dysphagia, ataxia, both improving today MRI showed acute infarct Medula Continue Statin, ASA. continue secured entrance monitor to rule out a fib Echo normal, no PFO, no atrial thrombus. will check carotid doppler Hypercoagulable profile ordered to rule out cause of stroke in young patient (2) Ataxia Current Visit: Yes Status: Acute Assessment and plan: Improving. 2/2 brainstem infarct PT/OT on board. continue to monitor (3) Dysphagia Current Visit: Yes Status: Acute Assessment and plan: improving. Patient failed initial swallow eval, has now passed. Progressed to Advanced soft textures and nectar thickened liquids. Continue to monitor. Qualifiers: Dysphagia type: unspecified Qualified Code(s): R13.10 - Dysphagia, unspecified (4) Diabetes Current Visit: Yes Status: Acute Qualifiers: Diabetes mellitus type: type 2 Diabetes mellitus complication status: without complication Diabetes mellitus senior living insulin use: without senior living use Qualified Code(s): E11.9 - Type 2 diabetes mellitus without complications - Subjective Interval history: 36F c PMHx of MRDD, DM who presented with dysphonia, dysphagia, and ataxia. Patient was found to have a medulla infarction on MRI. Patient initially failed swallow eval. Patient has now passed swallow eval and voice has returned to baseline. Per family gait is improved as well. Now able to give PO meds. Started on ASA and Statin. Echo was normal no PFO. - Constitutional Vitals: Temp Pulse Resp BP Pulse Ox 96.3 F L 73 16 116/88 96 03/09/17 07:15 03/09/17 07:15 03/09/17 07:15 03/09/17 07:15 03/09/17 07:15 General appearance: Present: A&O X 3, no acute distress, answers questions appropriately - Head Head exam: Present: atraumatic, normocephalic - Eye Eye exam: Present: EOMI, PERRL, conjuntiva pink, sclera anicteric Pupils: Present: PERRL - Neck Neck exam general surgery: Present: supple, trachea midline - Respiratory Respiratory exam: Present: CTAB. Absent: accessory muscle use, rales, rhonchi, wheezes - Cardiovascular Cardiovascular exam: Present: RRR, +S1, +S2. Absent: diastolic murmur, gallop, rubs, systolic murmur - GI/Abdominal GI/Abdominal exam: Present: normal bowel sounds, soft, no peritoneal signs. Absent: distended, tenderness - Extremities Exam Extremities exam: Present: warm. Absent: calf tenderness, cyanotic, pedal edema - Neurological Exam Neurological exam: Present: alert, CN II-XII intact, oriented X3, no focal deficits, strengths equal and symetr throughout. Absent: pronater drift, facial droop, speech deficit Additional comments: Reflexes 1+ throughout, equal b/l. mild dysmetria LLE heel to oneill. mild list to left on ambulation, but improved per family - Skin Skin exam: Present: dry, intact, warm Internal Medicine: Result - Labs CBC & Chem 7: 03/09/17 03:28 03/09/17 03:28 Labs: Short CBC 03/09/17 Range/Units 03:28 WBC 9.0 (4.3-11.1) K/mcL Hgb 12.0 (11.5-15.4) g/dL Hct 36.4 (35.3-44.9) % Plt Count 366 (140-400) K/mcL Neutrophils # 5.9 (1.6-8.9) K/mcL BMP 03/09/17 03:28 Sodium 137 Potassium 4.4 Chloride 104 Carbon Dioxide 27 BUN 9 Creatinine 0.80 Glucose 156 H Calcium 9.5 Cardiac Enzymes 03/08/17 03/08/17 Range/Units 14:18 19:28 Troponin I 0.01 0.00 (0-0.03) ng/mL Consult Discharge Plan - Plan Referrals: Kirt Flood MD [Primary Care Provider] - <Christiano Byrne - Last Filed: 03/09/17 18:40> Date of Encounter: 03/09/17 - Assessment and plan (1) CVA (cerebral vascular accident) Current Visit: Yes Status: Acute Qualifiers: CVA mechanism: thrombosis Precerebral and cerebral artery: posterior cerebral artery Laterality of affected vessel: left Qualified Code(s): I63.332 - 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 (2) Diabetes Current Visit: Yes Status: Acute Qualifiers: Diabetes mellitus type: type 2 Diabetes mellitus complication status: with neurologic complications Diabetes mellitus complication detail: with other neurological complication Diabetes mellitus senior living insulin use: without intermediate project manager use Qualified Code(s): E11.49 - Type 2 diabetes mellitus with other diabetic neurological complication (3) Ataxia Current Visit: Yes Status: Acute (4) Dysphagia Current Visit: Yes Status: Acute Qualifiers: Dysphagia type: oral phase Qualified Code(s): R13.11 - Dysphagia, oral phase - Constitutional Vitals: Temp Pulse Resp BP Pulse Ox 99.3 F 89 16 128/91 98 03/09/17 16:45 03/09/17 16:45 03/09/17 16:45 03/09/17 16:45 03/09/17 16:45 Internal Medicine: Result - Labs CBC & Chem 7: 03/09/17 03:28 03/09/17 03:28 Labs: Short CBC 03/09/17 Range/Units 03:28 WBC 9.0 (4.3-11.1) K/mcL Hgb 12.0 (11.5-15.4) g/dL Hct 36.4 (35.3-44.9) % Plt Count 366 (140-400) K/mcL Neutrophils # 5.9 (1.6-8.9) K/mcL BMP 03/09/17 03:28 Sodium 137 Potassium 4.4 Chloride 104 Carbon Dioxide 27 BUN 9 Creatinine 0.80 Glucose 156 H Calcium 9.5 Cardiac Enzymes 03/08/17 Range/Units 19:28 Troponin I 0.00 (0-0.03) ng/mL - Attending Attestation I examined this patient and my medical decision-making was reviewed with the Resident Physician on 03/09/17. I agree with the documented findings, disposition and treatment plan as described except to the extent set forth below. Ms. Head is currently admitted for acute cerebellar CVA. She is high risk due to potential for worsening neurologic status. Ms Head is doing somewhat better. She is less ataxic. Is able to swallow today. No fever or chills. No other new symptoms. Exam Alert. Comfortable Heart reg No wheeze Abd soft No edema I/P 1. Acute CVA 2. Dysphagia Further diagnoses and plan as above.
[2017-03-09] MEDS: Aspirin 325 MG TABLET PO SCH (11:36)
[2017-03-10 08:12] LABS: Hematocrit 39.3 % (35.3-44.9); Hemoglobin 12.7 g/dL (11.5-15.4); Mean Corpuscular HGB Conc 32.3 g/dL (31.6-35.5); Mean Corpuscular Hemoglobin 25.9 pg (28.0-33.3); Mean Corpuscular Volume 80.2 fL (83.0-100.0); Platelet Count 412 K/mcL (140-400); Red Cell Distribution Width 14.9 % (11.5-14.5)
[2017-03-10] MEDS: Insulin LISPRO 300 UNITS/3 ML VIAL SQ SCH ×4 (08:12→22:19)
[2017-03-10] MEDS: Aspirin 325 MG TABLET PO SCH (08:12)
--- NOTE | 2017-03-10 08:23 | Internal Med Progress Note ---
<Chava Hobson - Last Filed: 03/10/17 13:37> Date of Encounter: 03/10/17 Time of Encounter: 13:37 - Assessment and plan (1) Acute brainstem infarction Current Visit: Yes Status: Acute Assessment and plan: lidia 2/2 to DM, HTN Sxs dysphagia, ataxia, both improving today - MRI showed acute infarct [place] -Continue Statin, ASA. -continue child monitor to rule out a fib -Echo normal, no PFO, no atrial thrombus. - carotid doppler prelim nomral -hgb A1C 7.2 -Hypercoagulable profile ordered to rule out cause of stroke in young patient (2) Ataxia Current Visit: Yes Status: Acute Assessment and plan: Improving. 2/2 brainstem infarct -PT/OT on board. -continue to monitor (3) Dysphagia Current Visit: Yes Status: Acute Assessment and plan: improving. -Patient failed initial swallow eval, has now passed. -Progressed to Advanced soft textures and nectar thickened liquids. -Continue to monitor. Qualifiers: Dysphagia type: oral phase Qualified Code(s): R13.11 - Dysphagia, oral phase (4) Diabetes Current Visit: Yes Status: Acute Assessment and plan: Chronic. hgb A1C 7.2 Continue SSI Accuchecks Qualifiers: Diabetes mellitus type: type 2 Diabetes mellitus complication status: with neurologic complications Diabetes mellitus complication detail: with other neurological complication Diabetes mellitus penitentiary insulin use: without penitentiary use Qualified Code(s): E11.49 - Type 2 diabetes mellitus with other diabetic neurological complication - Subjective Interval history: Patient continuing to improve. tolerating soft diet well. Prelim read of carotid u/s normal. hgb a1c 7.2 - Constitutional Vitals: Temp Pulse Resp BP Pulse Ox 98 F 83 18 126/78 98 03/10/17 07:00 03/10/17 07:00 03/10/17 07:00 03/10/17 07:00 03/10/17 07:00 General appearance: Present: A&O X 3, no acute distress, answers questions appropriately - Head Head exam: Present: atraumatic, normocephalic - Eye Eye exam: Present: PERRL, conjuntiva pink, sclera anicteric Pupils: Present: PERRL - Neck Neck exam general surgery: Present: supple, trachea midline - Respiratory Respiratory exam: Present: CTAB. Absent: accessory muscle use, rales, rhonchi, wheezes - Cardiovascular Cardiovascular exam: Present: RRR, +S1, +S2. Absent: diastolic murmur, gallop, rubs, systolic murmur - GI/Abdominal GI/Abdominal exam: Present: normal bowel sounds, soft, no peritoneal signs. Absent: distended, tenderness - Extremities Exam Extremities exam: Present: warm. Absent: calf tenderness, cyanotic, pedal edema - Neurological Exam Neurological exam: Present: alert, CN II-XII intact, oriented X3, strengths equal and symetr throughout. Absent: facial droop, speech deficit - Skin Skin exam: Present: dry, intact, warm Internal Medicine: Result - Labs CBC & Chem 7: 03/10/17 07:44 03/09/17 03:28 Labs: Short CBC 03/10/17 Range/Units 07:44 WBC 10.4 (4.3-11.1) K/mcL Hgb 12.7 (11.5-15.4) g/dL Hct 39.3 (35.3-44.9) % Plt Count 412 H (140-400) K/mcL - VTE Documentation of Mechanical Device: Intermittent pneumatic compression device Consult Discharge Plan - Plan Referrals: Kirt Flood MD [Primary Care Provider] - <Christiano Byrne - Last Filed: 03/10/17 18:05> Date of Encounter: 03/10/17 - Assessment and plan (1) CVA (cerebral vascular accident) Current Visit: Yes Status: Acute Qualifiers: CVA mechanism: thrombosis Precerebral and cerebral artery: posterior cerebral artery Laterality of affected vessel: left Qualified Code(s): I63.332 - 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 (2) Diabetes Current Visit: Yes Status: Acute Qualifiers: Diabetes mellitus type: type 2 Diabetes mellitus complication status: with neurologic complications Diabetes mellitus complication detail: with other neurological complication Diabetes mellitus long term care pharmacist insulin use: without long term care pharmacist use Qualified Code(s): E11.49 - Type 2 diabetes mellitus with other diabetic neurological complication (3) Ataxia Current Visit: Yes Status: Acute (4) Dysphagia Current Visit: Yes Status: Acute Qualifiers: Dysphagia type: oral phase Qualified Code(s): R13.11 - Dysphagia, oral phase - Constitutional Vitals: Temp Pulse Resp BP Pulse Ox 97.6 F 94 18 122/82 97 03/10/17 15:13 03/10/17 15:13 03/10/17 15:13 03/10/17 15:13 03/10/17 15:13 Internal Medicine: Result - Labs CBC & Chem 7: 03/10/17 07:44 03/09/17 03:28 Labs: Short CBC 03/10/17 Range/Units 07:44 WBC 10.4 (4.3-11.1) K/mcL Hgb 12.7 (11.5-15.4) g/dL Hct 39.3 (35.3-44.9) % Plt Count 412 H (140-400) K/mcL - Attending Attestation I examined this patient and my medical decision-making was reviewed with the Resident Physician on 03/10/17. I agree with the documented findings, disposition and treatment plan as described except to the extent set forth below. Ms. Head is currently admitted for acute CVA. She remains high risk due to potential for worsening neuro symptoms. Ms Head is up with LAYER UP walking. Feels OK. No fever or chills. No CP or SOB. Tolerating diet. Exam Alert. Comfortable Heart reg No wheeze Abd soft I/P 1. CVA 2. DM Further diagnoses and plan as above. Anticipate d/c tomorrow.
[2017-03-10 08:33] LABS: Hemoglobin A1C 7.2 %
[2017-03-11 05:42] LABS: Hematocrit 36.7 % (35.3-44.9); Hemoglobin 11.9 g/dL (11.5-15.4); Mean Corpuscular HGB Conc 32.4 g/dL (31.6-35.5); Mean Corpuscular Hemoglobin 25.5 pg (28.0-33.3); Mean Corpuscular Volume 78.8 fL (83.0-100.0); Mean Platelet Volume 9.5 fL (9.4-12.4); Platelet Count 385 K/mcL (140-400); Red Blood Count 4.66 M/mcL (3.82-4.97); Red Cell Distribution Width 14.7 % (11.5-14.5)
[2017-03-11] MEDS: Aspirin 325 MG TABLET PO SCH (08:10)
[2017-03-11] MEDS: Insulin LISPRO 300 UNITS/3 ML VIAL SQ SCH ×2 (08:11→12:32)
--- NOTE | 2017-03-11 08:16 | Electrocardiograph Report ---
[place] [id number] Test Date: 2017-03-08 Pat Name: Gladis Head Department: 104 Room: [facility] Gender: F Lobsterman: AM : 1980 Requested By: Dusty Garrett Order Number: [id number] Reading MD: Pauline Johnson Measurements Intervals [place] Rate: 73 P: 28 MS: 145 QRS: 27 QRSD: 95 T: 9 QT: 377 QTc: 403 Interpretive Statements SINUS RHYTHM ST DEVIATION AND MODERATE T-WAVE ABNORMALITY, CONSIDER ANTERIOR ISCHEMIA Electronically Signed On 03-10-2017 11:10:03 EDT by Pauline Johnson
--- NOTE | 2017-03-11 08:23 | Discharge Summary ---
<Chava Hobson - Last Filed: 03/11/17 15:24> Date of Encounter: 03/11/17 Time of Encounter: 08:00 - Discharge Diagnosis (1) Acute brainstem infarction Priority: Primary Status: Acute (2) Ataxia Priority: Secondary Status: Acute (3) Dysphagia Priority: Secondary Status: Acute Qualifiers: Dysphagia type: oral phase Qualified Code(s): R13.11 - Dysphagia, oral phase (4) Diabetes Priority: Secondary Status: Acute Qualifiers: Diabetes mellitus type: type 2 Diabetes mellitus complication status: with neurologic complications Diabetes mellitus complication detail: with other neurological complication Diabetes mellitus ostrich farmer insulin use: without detention use Qualified Code(s): E11.49 - Type 2 diabetes mellitus with other diabetic neurological complication - Discharge Medications Prescriptions: Atorvastatin [Lipitor] 40 mg PO HS #30 tab Home Medications: GlipiZIDE [Glipizide ER] 20 mg PO 1400 03/08/17 [History] Metformin HCl [Metformin HCl ER] 1,000 mg PO BID 03/08/17 [History] Aspirin 325 mg PO DAILY tab 03/11/17 [Rx] Atorvastatin [Lipitor] 40 mg PO HS #30 tab 03/11/17 [Rx] Allergies/Adverse Reactions: 3 Allergy/AdvReac Type Severity Reaction Status Date / Time No Known Allergies Allergy Verified 03/08/17 08:18 Procedures/tests Complete & Pending: Procedures Performed prior 72 hours Category Date Time Status EV carotid duplex imaging BI Routine Y 03/10/17 12:49 Completed Date of admission: 03/08/17 13:20 Primary care physician: Kirt Flood Consults: 03/10/17 19:18 Consult to Contact Lens Flashing Puncher [CONS] Routine Comment: Reason for Consult: managing diabetes and food choices. Consult to Nutrition [CONS] Routine Comment: Consulting Provider: NUTRITION Reason for Dietary Consult: Other Other:: Diabetic food choices. Discharging clinician: Chava Hobson Anticipated date of discharge: 03/11/17 - Patient Status Disposition: Home, Self-Care Condition: Good Functional capacity at discharge: independent ambulation Overall status at discharge: patient is progressing back to baseline - Discharge Instructions Instructions: Diabetes Mellitus Type 2 in Adults (DC), Ischemic Stroke (DC), Ischemic Stroke (GEN), Chronic Dysphagia (DC) Follow Up With: Elizabeth Rowe DUMPSTER OPERATOR [Advanced Practice Nurse] - 03/28/17 9:15 am Bryson Carlson MD [Partnered Physician] - 03/17/17 2:15 pm Additional Instructions: Follow with Dr. Farrar in 2-3 weeks. - Diet and Activity Activity: resume usual activities as tolerated Diet: diabetic diet Hospital course: Ms. Head is a 36 year old female - Time Spent with Patient Total time spent providing and/or coordinating discharge services: - Constitutional Vitals: Temp Pulse Resp BP Pulse Ox 97.8 F 91 18 116/82 96 03/11/17 07:27 03/11/17 07:27 03/11/17 07:27 03/11/17 07:27 03/11/17 07:27 General appearance: Present: A&O X 3, no acute distress, answers questions appropriately - Stroke Reason for No Anticoagulant at DC: Medical contraindication Contraindication Not Initiating IV-Tpa: Not Indicated - NIHSS Score of "Zero" Symptom Onset Unknown: Yes Has Patient Been Evaluated by Rehab for Stroke: Yes - VTE Documentation of Mechanical Device: Intermittent pneumatic compression device Deep Vein Thrombosis/Pulmonary Embolism Present on Admission: No <Christiano Byrne - Last Filed: 03/11/17 18:07> Date of Encounter: 03/11/17 - Discharge Diagnosis (1) CVA (cerebral vascular accident) Priority: Primary Status: Acute Qualifiers: CVA mechanism: thrombosis Precerebral and cerebral artery: posterior cerebral artery Laterality of affected vessel: left Qualified Code(s): I63.332 - 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 (2) Diabetes Status: Acute Qualifiers: Diabetes mellitus type: type 2 Diabetes mellitus complication status: with neurologic complications Diabetes mellitus complication detail: with other neurological complication Diabetes mellitus ostrich farmer insulin use: without ostrich farmer use Qualified Code(s): E11.49 - Type 2 diabetes mellitus with other diabetic neurological complication (3) Ataxia Status: Resolved (4) Dysphagia Status: Resolved Qualifiers: Dysphagia type: oral phase Qualified Code(s): R13.11 - Dysphagia, oral phase (5) Obesity (BMI 30.0-34.9) Priority: Secondary Status: Chronic Procedures/tests Complete & Pending: Procedures Performed prior 72 hours Category Date Time Status EV carotid duplex imaging BI Routine Y 03/10/17 12:49 Completed Date of admission: 03/08/17 13:20 Primary care physician: Kirt Flood Consults: 03/10/17 19:18 Consult to Contact Lens Flashing Puncher [CONS] Routine Comment: Reason for Consult: managing diabetes and food choices. Consult to Nutrition [CONS] Routine Comment: Consulting Provider: NUTRITION Reason for Dietary Consult: Other Other:: Diabetic food choices. - Patient Status Functional capacity at discharge: independent ambulation Overall status at discharge: patient is progressing back to baseline - Diet and Activity Activity: resume usual activities as tolerated Diet: diabetic diet Hospital course: Ms. Head is a 36 year old female with hx of MRDD (high functioning, lives at home with parents) brought to the ED with dysphagia and ataxia. She had noted the dysphagia about 2AM and didn't wake parents. Later in the morning she came downstairs and was very ataxic. She was seen in ED and admitted for further eval and treatment. Ms. Head was admitted to [facility]. MRI was positive for acute CVA. She was outside window for TPA. She could not swallow initially and was given rectal aspirin. The next morning she was somewhat better and was able to have a diet. She was seen by PT/OT and acute rehab was recommended. Over the next 2 days she had continued improvement and does not need any further therapy now. Her HgbA1C was 7.1. She was afebrile with stable vitals and was ready for discharge home with outpatient follow up. - Time Spent with Patient Total time spent providing and/or coordinating discharge services: 40min - Constitutional Vitals: Temp Pulse Resp BP Pulse Ox 97.8 F 94 18 113/82 97 03/11/17 11:00 03/11/17 11:00 03/11/17 11:00 03/11/17 11:00 03/11/17 11:00 - Head Head exam: Present: normocephalic - Eye Eye exam: Present: conjuntiva pink - ENT ENT exam: Present: mucous membranes moist - Respiratory Respiratory exam: Present: CTAB. Absent: rales, rhonchi, wheezes - Cardiovascular Cardiovascular exam: Present: RRR. Absent: tachycardia - GI/Abdominal GI/Abdominal exam: Present: soft. Absent: tenderness - Extremities Exam Extremities exam: Present: warm. Absent: tenderness - Neurological Exam Neurological exam: Present: abnormal gait, alert - Skin Skin exam: Present: warm. Absent: rash - Attending Attestation I examined this patient and my medical decision-making was reviewed with the Resident Physician 03/11/17. I agree with the documented findings, disposition and treatment plan as described except to the extent set forth below. Please see above summary of hospitalization and exam by me. Plan D/C on ASA and statin Follow with PCP and neuro.
--- NOTE | 2017-03-11 08:28 | Carotid Imaging Report ---
Carotid Duplex Patient Name:Gladis Head Order Number:[id number] Procedure Date:03/10/2017 Date:1980Age:36 yrs Gender:Female Lt BP:128 / 84 mmHg Rt.BP:130 / 82 mmHgHeart Rate: Location:[facility] Room #: 2NE35 Teller Supervisor:Ivet Watts, RVT Referring MD:Dusty Garrett DO manager communication:Kirt Flood MD Reading MD:Eugene Mora MD Study Quality:Technically Difficult Primary Indications:CVA Impressions: The bilateral carotid arteries are normal throughout. Recommendations: Test completed on 03/10/2017 at 8:15:00 am. Findings Carotid Duplex: Castro scale imaging combined with Doppler flow analysis suggests normal findings bilaterally. Right: The right proximal common carotid artery has a PSV of 91 cm/s and a EDV of 24 cm/s. The right mid common carotid artery has a PSV of 95 cm/s and a EDV of 25 cm/s. The right distal common carotid artery has a PSV of 86 cm/s and a EDV of 27 cm/s. The right bifurcation has a PSV of 90 cm/s and a EDV of 23 cm/s. The right proximal internal carotid artery has a PSV of 62 cm/s and a EDV of 20 cm/s. The right mid internal carotid artery has a PSV of 80 cm/s and a EDV of 39 cm/s. The right distal internal carotid artery has a PSV of 51 cm/s and a EDV of 24 cm/s. The right eca has a PSV of 80 cm/s and a EDV of 10 cm/s. The right vertebral artery has a PSV of 97 cm/s and a EDV of 46 cm/s. Left: The left proximal common carotid artery has a PSV of 125 cm/s and a EDV of 26 cm/s. The left mid common carotid artery has a PSV of 80 cm/s and a EDV of 25 cm/s. The left distal common carotid artery has a PSV of 100 cm/s and a EDV of 26 cm/s. The left bifurcation has a PSV of 127 cm/s and a EDV of 32 cm/s. The left proximal internal carotid artery has a PSV of 99 cm/s and a EDV of 31 cm/s. The left eca has a PSV of 110 cm/s and a EDV of 32 cm/s. The left vertebral artery has a PSV of 25 cm/s. Prior Study: No prior study available for comparison. Carotid Results Right PSV EDV Assessment Proximal CCA 91 24 Mid CCA 95 25 Distal CCA 86 27 Bifurcation 90 23 Proximal ICA 62 20 Mid ICA 80 39 Distal ICA 51 24 ECA 80 10 Vertebral Artery 97 46 Left PSV EDV Assessment Proximal CCA 125 26 Mid CCA 80 25 Distal CCA 100 26 Bifurcation 127 32 Proximal ICA 99 31 ECA 110 32 Vertebral Artery 25 0 Ratio's Right ICA/CCA Ratio: 0.65 ICA/CCA Values: 62/95 Left ICA/CCA Ratio: 1.23 ICA/CCA Values: 99/80 Updated by Eugene Mora MD on 03/11/2017 7:34:36 AM electronically signed on 03/11/2017 7:34:47 AM with status of Final
[2017-03-11 11:45] VITALS: BP 113/82
[2017-03-12 15:09] LABS: Homocysteine 7 umol/L (<=10)
[2017-03-13 07:40] LABS: ANA IgG by ELISA DETECTED (None Detected)
[2017-03-13 21:52] LABS: APTT (LE Anticoag) 41 sec (32-48); Diluted Russell Viper Venom 36 sec (33-44); PT (LE-Anticoag) 12.4 sec (12.0-15.5)
[2017-03-14 07:52] LABS: ANA IgG IFA Titer <1:40 (<1:40); Protein S Antigen, Total 145 % (63-126); TSH Receptor Antibody <0.90 IU/L (<=1.75)
[2017-03-14 07:53] LABS: Antithrombin III, Activity 82 % (76-128)
[2017-03-14 20:39] LABS: FACV Specimen WHOLE BLOOD
[2017-03-16 13:22] LABS: Fac V Leiden R506Q Mut Result NEGATIVE
== END 2017-03-11 16:41 | disposition home or self-care (01) | DRG 45 ==
LOC: EMEROO 07:59 → 3BNU 07:59 → SUATTDRO 13:20 → 2NENU 17:51
PROVIDERS: ADMIT Nurse Practitioner Acute Care; ATTEND Internal Medicine

== ENCOUNTER 2017-07-01 21:49 | Observation (INO) ==
--- NOTE | 2017-07-01 22:25 | Emergency Department Note ---
Disposition Clinical Impression: Upper extremity weakness, Tremor, Facial droop, History of CVA ( cerebrovascular accident) Disposition: Admitted As Inpatient Condition: Good Forms: ED Satisfaction Letter General Adult HPI - General Chief complaint: ED Neuro Symptoms/Deficit Stated complaint: STROKE LIKE SYMPTOMS Time Seen by Provider: 07/01/17 21:56 Source: patient, family Limitations: other Nursing Notes Reviewed: Yes Vital Signs Reviewed: Yes - History of Present Illness HPI Narrative: 37-year-old female who reports that back in March she had a ischemic stroke. This was found on MRI. She had onset of symptoms in March that included dysdiadochokinesis with difficulty swallowing. She was found to have a stroke of a portion of the medulla. The patient reports that she presented to the emergency department today because one hour prior to arrival she had acute onset of worsening left eye droop (which was chronic from the last stroke ) and in addition had right arm weakness and new onset right arm tremor. This all resolved by the time she arrived in the emergency department. She also reports that her blood glucose has been elevated. She denies excessive urination or excessive thirst. She reports a glucose in the 300s. She is a known diabetic. She denies chest pain or shortness of breath. She denies abdominal pain or nausea or vomiting. Pain Scale: 0 Improves with: nothing Worsens with: nothing Associated symptoms: Reports: denies other symptoms Treatments Prior to Arrival: none - Related Data Home Medications Medication Instructions Recorded Confirmed GlipiZIDE [Glipizide ER] 20 mg PO 1400 03/08/17 03/08/17 Metformin HCl [Metformin HCl ER] 1,000 mg PO BID 03/08/17 03/08/17 Alogliptin Benzoate [Alogliptin] 25 mg PO DAILY 07/01/17 07/01/17 Folic Acid/Multivit-Min/Lutein 2 each PO DAILY 07/01/17 07/01/17 [Adult Multivitamin Gummies] Previous Rx's Medication Instructions Recorded Aspirin 325 mg PO DAILY tab 03/11/17 Atorvastatin [Lipitor] 40 mg PO HS #30 tab 03/11/17 Allergies Allergy/AdvReac Type Severity Reaction Status Date / Time No Known Allergies Allergy Verified 07/01/17 21:49 All systems ED: reviewed and negative except as stated. Constitutional: Denies: fever ENT ED: Denies: throat pain Cardiovascular: Denies: chest pain Respiratory: Denies: cough Gastrointestinal: Denies: abdominal pain Musculoskeletal: Denies: neck pain Integumentary: Denies: rash Neurological: Denies: headache Endocrine: Denies: fatigue Past Medical History - Past Medical History Medical history: Reports: diabetes Surgical history: Reports: SYLVESTER/BSO Psychiatric history: Reports: no psych history CRATE ICER history: Reports: non-contributory - Social History Smoking Status: Never smoker Smokeless Tobacco Status: No Alcohol use: Reports: none Drug use: Reports: none Physical Exam - General Limitations: other General appearance: alert, in no apparent distress - Head Head exam: atraumatic - Eye Eye exam: Present: normal appearance, PERRL - ENT ENT exam: normal exam, normal oropharynx - Neck Neck exam: Present: normal inspection, full ROM - Chest Chest inspection: Present: normal inspection - Respiratory Respiratory exam: Present: normal lung sounds bilaterally. Absent: respiratory distress - Cardiovascular Cardiovascular exam: Present: regular rate, normal rhythm - Abdominal Exam Abdominal exam: Present: soft, Non-Tender - Extremities Exam Extremities exam: Present: normal inspection - Back Exam Back exam: Present: normal inspection - Neurological Exam Neurological exam: Present: alert, oriented X3, CN II-XII intact, reflexes normal, other (No dysdiadochokinesis. Sensation intact. No tremors present.). Absent: motor sensory deficit - Psychiatric Psychiatric exam: Present: normal affect, normal mood - Skin Skin exam: Present: warm, dry Course Course Narrative: No stroke alert was called as the patient does not currently have any symptoms. However I do have concern for TIA as she does have a history of an ischemic stroke. We will do a CT scan and lab work. I will also evaluate the hyperglycemia make sure she is not in DKA. Anion gap of 12. mildly elevated ketones. Will give subQ insulin and fluids. Will admit for TIA like symptoms. Vital Signs Temperature 98.6 F 07/01/17 21:50 Pulse Rate 103 07/01/17 21:50 Respiratory Rate 18 07/01/17 21:50 Blood Pressure 120/83 07/01/17 21:50 O2 Sat by Pulse Oximetry 96 07/01/17 21:50 Temperature 98.6 F 07/01/17 21:50 Pulse Rate 96 07/01/17 22:59 Respiratory Rate 18 07/01/17 21:50 Blood Pressure 127/95 07/01/17 22:59 O2 Sat by Pulse Oximetry 96 07/01/17 22:59 Oxygen Delivery Oxygen Delivery Room Air Medical Decision Making - Medical Records Medical records reviewed: Yes I reviewed the patient's medical records. - Lab Data Lab results reviewed: Yes I reviewed the patient's lab results. Result diagrams: 07/01/17 22:15 07/01/17 22:15 Lab Results 07/01/17 07/01/17 07/01/17 Range/Units 22:15 22:15 22:15 WBC 9.1 (4.3-11.1) K/mcL RBC 4.46 (3.82-4.97) M/mcL Hgb 11.7 (11.5-15.4) g/dL Hct 35.6 (35.3-44.9) % MCV 79.8 L (83.0-100.0) fL MCH 26.2 L (28.0-33.3) pg MCHC 32.9 (31.6-35.5) g/dL RDW 14.6 H (11.5-14.5) % Plt Count 387 (140-400) K/mcL MPV 10.4 (9.4-12.4) fL Immature Gran % 0.3 (0-4) % Seg Neutrophils % 62.5 % Lymphocytes % 28.0 % Monocytes % 7.3 % Eosinophils % 1.5 % Basophils % 0.4 % Neutrophils # 5.7 (1.6-8.9) K/mcL Lymphocytes # 2.5 (0.6-4.6) K/mcL Monocytes # 0.7 (0.0-1.3) K/mcL Eosinophils # 0.1 (0.0-0.6) K/mcL Basophils # 0.0 (0.0-0.2) K/mcL PT 10.3 (9.4-12.1) Seconds INR 1.0 APTT 27.1 (26.0-36.0) Seconds VBG pH (7.32-7.42) pH Units VBG pCO2 (41-51) mmHg VBG pO2 (25-50) mmHg VBG HCO3 (21-27) mEq/L Sodium 134 L (136-145) mEq/L Potassium 4.5 (3.5-5.1) mEq/L Chloride 102 (98-107) mEq/L Carbon Dioxide 22 L (23-29) mEq/L BUN 12 (6-20) mg/dL Creatinine 0.73 (0.60-1.20) mg/dL Est GFR ( Amer) > 60 (> 60) Est GFR (Non-Af Amer) > 60 (> 60) BUN/Creatinine Ratio 16 (6-26) Glucose 352 H (70-105) mg/dL Calculated Osmolality 292 (280-300) Calcium 9.7 (8.6-10.3) mg/dL Troponin I (< 0.04) ng/mL Beta-Hydroxybutyric Acd 0.29 H (0.02-0.27) mmol/L Urine Color (Yellow) Urine Clarity (Clear) Urine pH (5.0-8.0) pH Units Ur Specific [place] (1.010-1.025) Urine Protein (Neg-Trace) mg/dL Urine Glucose (UA) (Normal) mg/dL Urine Ketones (Negative) mg/dL Urine Blood (Negative) Urine Nitrite (Negative) Urine Bilirubin (Negative) Urine Urobilinogen (Normal) mg/dL Ur Leukocyte Esterase (Negative) Ur Culture Indicated? (NO) 07/01/17 07/01/17 07/01/17 Range/Units 22:15 22:26 22:42 WBC (4.3-11.1) K/mcL RBC (3.82-4.97) M/mcL Hgb (11.5-15.4) g/dL Hct (35.3-44.9) % MCV (83.0-100.0) fL MCH (28.0-33.3) pg MCHC (31.6-35.5) g/dL RDW (11.5-14.5) % Plt Count (140-400) K/mcL MPV (9.4-12.4) fL Immature Gran % (0-4) % Seg Neutrophils % % Lymphocytes % % Monocytes % % Eosinophils % % Basophils % % Neutrophils # (1.6-8.9) K/mcL Lymphocytes # (0.6-4.6) K/mcL Monocytes # (0.0-1.3) K/mcL Eosinophils # (0.0-0.6) K/mcL Basophils # (0.0-0.2) K/mcL PT (9.4-12.1) Seconds INR APTT (26.0-36.0) Seconds VBG pH 7.39 (7.32-7.42) pH Units VBG pCO2 43 (41-51) mmHg VBG pO2 90 H (25-50) mmHg VBG HCO3 26 (21-27) mEq/L Sodium (136-145) mEq/L Potassium (3.5-5.1) mEq/L Chloride (98-107) mEq/L Carbon Dioxide (23-29) mEq/L BUN (6-20) mg/dL Creatinine (0.60-1.20) mg/dL Est GFR ( Amer) (> 60) Est GFR (Non-Af Amer) (> 60) BUN/Creatinine Ratio (6-26) Glucose (70-105) mg/dL Calculated Osmolality (280-300) Calcium (8.6-10.3) mg/dL Troponin I < 0.03 (< 0.04) ng/mL Beta-Hydroxybutyric Acd (0.02-0.27) mmol/L Urine Color Yellow (Yellow) Urine Clarity Clear (Clear) Urine pH 7.0 (5.0-8.0) pH Units Ur Specific [place] > 1.030 H (1.010-1.025) Urine Protein Negative (Neg-Trace) mg/dL Urine Glucose (UA) >=1000 H (Normal) mg/dL Urine Ketones Trace H (Negative) mg/dL Urine Blood Negative (Negative) Urine Nitrite Negative (Negative) Urine Bilirubin Negative (Negative) Urine Urobilinogen Normal (Normal) mg/dL Ur Leukocyte Esterase Negative (Negative) Ur Culture Indicated? NO (NO) - Radiology Data Radiology results reviewed: Yes I reviewed the patient's radiology results. - EKG Data EKG #1 EKG attestation: Yes I reviewed and interpreted this EKG. EKG shows normal: sinus rhythm Rate: normal Rhythm: NSR Willard/QRS: normal ST segment depression in: v2, v3 T wave inversions noted in: v2, v3 When compared to previous EKG there are: no significant changes Interpretation: other (Mild ST depression is present in leads V2 and V3. This was present on prior EKG from March 2017.)
[2017-07-01 22:30] LABS: Basophils % 0.4 %; Eosinophils # 0.1 K/mcL (0.0-0.6); Eosinophils % 1.5 %; Hematocrit 35.6 % (35.3-44.9); Hemoglobin 11.7 g/dL (11.5-15.4); Immature Granulocytes % 0.3 % (0-4); Lymphocytes # 2.5 K/mcL (0.6-4.6); Mean Corpuscular HGB Conc 32.9 g/dL (31.6-35.5); Mean Corpuscular Hemoglobin 26.2 pg (28.0-33.3); Mean Corpuscular Volume 79.8 fL (83.0-100.0); Mean Platelet Volume 10.4 fL (9.4-12.4); Monocytes # 0.7 K/mcL (0.0-1.3); Monocytes % 7.3 %; Neutrophils # 5.7 K/mcL (1.6-8.9); Platelet Count 387 K/mcL (140-400); Red Blood Count 4.46 M/mcL (3.82-4.97); Red Cell Distribution Width 14.6 % (11.5-14.5); Segmented Neutrophils % 62.5 %
[2017-07-01 22:33] LABS: Prothrombin Time 10.3 Seconds (9.4-12.1)
[2017-07-01 22:35] LABS: Beta-Hydroxybutyric Acid 0.29 mmol/L (0.02-0.27)
[2017-07-01 22:36] LABS: Activated Partial Thrombo Time 27.1 Seconds (26.0-36.0)
[2017-07-01 22:45] LABS: BUN/Creatinine Ratio 16 (6-26); Blood Urea Nitrogen 12 mg/dL (6-20); Calcium 9.7 mg/dL (8.6-10.3); Carbon Dioxide 22 mEq/L (23-29); Chloride 102 mEq/L (98-107); Glucose 352 mg/dL (70-105); Osmolality,Calculated 292 (280-300); Potassium 4.5 mEq/L (3.5-5.1); Sodium 134 mEq/L (136-145); eGFR For African Americans > 60 (> 60); eGFR For Non-African Americans > 60 (> 60)
[2017-07-01 22:47] LABS: VBG HCO3 26 mEq/L (21-27); VBG PCO2 43 mmHg (41-51); VBG PH 7.39 pH Units (7.32-7.42); VBG PO2 90 mmHg (25-50)
[2017-07-01 22:50] LABS: Bilirubin,Urine Negative (Negative); Blood,Urine Negative (Negative); Clarity,Urine Clear (Clear); Color,Urine Yellow (Yellow); Glucose,Urine (UA) >=1000 mg/dL (Normal); Ketones,Urine Trace mg/dL (Negative); Leukocyte Esterase,Urine Negative (Negative); Nitrite,Urine Negative (Negative); Protein,Urine Negative (Neg-Trace); Specific Gravity,Urine > 1.030 (1.010-1.025); Urobilinogen,Urine Normal (Normal)
[2017-07-01] MEDS ORDERED: 0.9 % Sodium Chloride 1,000 ML IVC ONE (23:23)
[2017-07-01] MEDS ORDERED: Insulin Regular, Human 100 UNIT/ML SQ ONE (23:26)
[2017-07-02] MEDS ORDERED: Dextrose Gel 15 GM PO PRN ×2 (03:19)
[2017-07-02] MEDS ORDERED: *HR* Dextrose 50 % in Water (Syg) 50 ML SYRINGE IVP PRN (03:19)
[2017-07-02] MEDS ORDERED: D5% in Water 1,000 ML IVC PRN (03:19)
--- NOTE | 2017-07-02 03:29 | Internal Med History&Physical ---
Date of Encounter: 07/02/17 Time of Encounter: 03:00 Assessment and Plan (1) Tremor Current visit: Yes Status: Acute Sudden onset and resolution, associated with worsening facial droop according to family. Concerning for possible TIA versus complex partial seizure. Had extensive workup earlier this year when she had CVA - TTE without PFO, carotids normal. Diabetes and HTN thought to contribute to her stroke risk. - MRI in AM - Consult neurology for assistance - Swallow eval - Neuro checks (2) Diabetes Current visit: No Status: Acute Not well controlled. - Hold PO agents while admitted - SSI Qualifiers: Diabetes mellitus type: type 2 Diabetes mellitus complication status: with neurologic complications Diabetes mellitus complication detail: with other neurological complication Diabetes mellitus water and fire technician insulin use: without water and fire technician use Qualified Code(s): E11.49 - Type 2 diabetes mellitus with other diabetic neurological complication Internal Medicine - H&P: HPI Chief complaint: Right hand tremor Admitted From: Emergency Dept Plans for Post Hospital Care: Home History of present illness: Ms. Head is a 37 year old female with history of CVA 03/2017 who presented to the ED this evening with complaint of right hand tremor which developed suddenly around 2029 and lasted for thirty minutes. The patients family told the RN that she also had a worsening left facial droop while the right hand tremor was present. On arrival to the ED she was back to baseline (slight left facial droop). She denies chest pain or shortness of breath, denies headache. It is not clear why she had a CVA several months ago. Past Med Surg Social Fam HX - Past Medical History Medical history: CVA, diabetes Psychiatric history: no psych history - Past Surgical History Surgical History: SYLVESTER/BSO - Social History Smoking Status: Never smoker Smokeless Tobacco Status: No Alcohol use: none Drug use: none - Family History Grandmother Living Status: Hx Family Cancer: Yes Internal Medicine - H&P: Meds GlipiZIDE [Glipizide ER] 10 mg PO 1400 03/08/17 [History] Metformin HCl [Metformin HCl ER] 1,000 mg PO BID 03/08/17 [History] Aspirin 325 mg PO DAILY tab 03/11/17 [Rx] Atorvastatin [Lipitor] 40 mg PO HS #30 tab 03/11/17 [Rx] Alogliptin Benzoate [Alogliptin] 25 mg PO DAILY 07/01/17 [History] Folic Acid/Multivit-Min/Lutein [Adult Multivitamin Gummies] 2 each PO DAILY [History] 3 Allergy/AdvReac Type Severity Reaction Status Date / Time No Known Allergies Allergy Verified 07/01/17 21:49 All Systems PM: A 10-system review of systems was performed and is negative for pertinent findings except as documented above in the HPI. - Constitutional Vitals: Temp Pulse Resp BP Pulse Ox 98.1 F 91 16 99/64 96 07/02/17 03:06 07/02/17 03:06 07/02/17 03:06 07/02/17 03:06 07/02/17 03:06 General appearance: Present: mild distress, pleasant, no acute distress - Head Head exam: Present: atraumatic - Eye Eye exam: Present: EOMI, sclera anicteric - ENT ENT exam: Present: mucous membranes moist - Neck Neck exam general surgery: Present: supple - Respiratory Respiratory exam: Present: CTAB - Cardiovascular Cardiovascular exam: Present: RRR. Absent: diastolic murmur, gallop, rubs, systolic murmur - GI/Abdominal GI/Abdominal exam: Present: normal bowel sounds, soft. Absent: distended, tenderness - Extremities Exam Extremities exam: Absent: pedal edema - Neurological Exam Neurological exam: Present: no focal deficits - Skin Skin exam: Absent: rash Internal Med - H&P Results - Labs CBC & Chem 7: 07/01/17 22:15 07/01/17 22:15
[2017-07-02 04:30] LABS: BUN/Creatinine Ratio 20 (6-26); Blood Urea Nitrogen 13 mg/dL (6-20); Calcium 9.4 mg/dL (8.6-10.3); Carbon Dioxide 26 mEq/L (23-29); Chloride 105 mEq/L (98-107); Glucose 190 mg/dL (70-105); Osmolality,Calculated 289 (280-300); Potassium 4.2 mEq/L (3.5-5.1); Sodium 137 mEq/L (136-145); eGFR For African Americans > 60 (> 60); eGFR For Non-African Americans > 60 (> 60)
[2017-07-02] MEDS: Insulin LISPRO 300 UNITS/3 ML VIAL SQ SCH ×2 (10:31→11:23)
[2017-07-02] MEDS: Aspirin 325 MG TABLET PO SCH ×2 (10:38→11:23)
[2017-07-02 11:21] VITALS: BP 97/57
--- NOTE | 2017-07-02 12:40 | Neurology - Consult Note ---
Date of Encounter: 07/02/17 Time of Encounter: 12:36 Assessment and Plan (1) TIA (transient ischemic attack) Current Visit: Yes Status: Acute Patient developed witnessed right sided weakness and right hand tremor for about 30 minutes and symptoms resolved upon arrival to ER. No prior history of seizures. The presence of brain stem infarct is not considered risk factor for symptomatic epilepsy. First episode, epileptic seizure unlikely. Will consider this as an episode of TIA since symptoms involving the right side and previous infarct is involving the left cerebellar peduncle. Will continue aspirin 325mg daily. Do not feel that she needs repeat stroke work up or further testing. Okay to discharge. Qualifiers: Transient cerebral ischemia type: unspecified Qualified Code(s): G45.9 - Transient cerebral ischemic attack, unspecified History of Present Illness Chief complaint: right sided weakness and tremor HPI: Ms. Head is a 37 year old female with PMH significant for MRDD, CVA, DM who developed right sided weakness and right arm tremor. The episode occurred prior to admission and by the time he arrived ER symptoms resolved. CT of head no acute intracranial abnormality. Reported some right arm tremor lasting 30 minutes?Had brain stem infarct during 03/2017. Stroke work up down at the time. Takes aspirin 325mg daily. No prior history of seizures. At the time of this interview, her symptoms resolved and she is back to baseline. Past Med Surg Social Fam HX - Past Medical History Medical history: CVA, diabetes Psychiatric history: no psych history - Past Surgical History Surgical History: SYLVESTER/BSO - Social History Smoking Status: Never smoker Smokeless Tobacco Status: No Alcohol use: none Drug use: none - Family History Grandmother Living Status: Hx Family Cancer: Yes Medications and Allergies GlipiZIDE [Glipizide ER] 10 mg PO 1400 03/08/17 [History] Metformin HCl [Metformin HCl ER] 1,000 mg PO BID 03/08/17 [History] Aspirin 325 mg PO DAILY tab 03/11/17 [Rx] Atorvastatin [Lipitor] 40 mg PO HS #30 tab 03/11/17 [Rx] Alogliptin Benzoate [Alogliptin] 25 mg PO DAILY 07/01/17 [History] Folic Acid/Multivit-Min/Lutein [Adult Multivitamin Gummies] 2 each PO DAILY [History] 3 Allergy/AdvReac Type Severity Reaction Status Date / Time No Known Allergies Allergy Verified 07/01/17 21:49 All Systems: A 10-system review of systems was performed and is negative for pertinent findings except as documented above in the HPI. Physical Examination - Vital Signs Vital Signs: Initial Vital Signs Temp Pulse Resp BP Pulse Ox 98.6 F 103 18 120/83 96 07/01/17 21:50 07/01/17 21:50 07/01/17 21:50 07/01/17 21:50 07/01/17 21:50 - Constitutional General appearance: comfortable - Neurologic Detailed motor examination: full strength in all major muscle groups Motor examination - right side: 5/5: deltoids, biceps, triceps, wrist flexion, wrist extension, insole lip turner, hip flexors, tibialis Anterior, quadriceps, toe extension (EHL), plantarflexion Motor examination - left side: 5/5: deltoids, biceps, triceps, wrist flexion, wrist extension, hip flexors, insole lip turner, quadriceps, tibialis Anterior, toe extension (EHL), plantarflexion Mental Status Examination: awake, alert, oriented to person, oriented to place, oriented to time, follows commands appropriately, answers questions appropriately, no agnosia, no aphasia, no aproxia Cranial nerve examination: PERRL, EOMI, visual guzman intact, corneal reflexes brisk symmetrically, sensory to face intact, mastication intact, no facial asymmetry is present, no dysarthria, hearing is intact symmetrically, soft palate elevates bilaterally upon phonation, gag reflex intact, flexes SCM and trapezius muscles symmetrically with full power, tongue protrudes midline, no atrophy or facial fasiculations present Cerebellar examination: no dysmetria, performs finger to nose and heel to oneill symmetrically without ataxia, no gait ataxia, no truncal ataxia, no difficulty with rapid alternating movements Results - Laboratory Findings CBC and BMP: 07/01/17 22:15 07/02/17 03:26 Abnormal lab findings: Abnormal lab results MCV 79.8 fL (83.0-100.0) L 07/01/17 22:15 MCH 26.2 pg (28.0-33.3) L 07/01/17 22:15 RDW 14.6 % (11.5-14.5) H 07/01/17 22:15 VBG pO2 90 mmHg (25-50) H 07/01/17 22:42 Glucose 190 mg/dL (70-105) H 07/02/17 03:26 POC Glucose 265 (58-89) H 07/02/17 00:27 Beta-Hydroxybutyric Acd 0.29 mmol/L (0.02-0.27) H 07/01/17 22:15 Ur Specific Holt > 1.030 (1.010-1.025) H 07/01/17 22:26 Urine Glucose (UA) >=1000 mg/dL (Normal) H 07/01/17 22:26 Urine Ketones Trace mg/dL (Negative) H 07/01/17 22:26 Consult Discharge Plan - Plan Referrals: Elizabeth Borja MD [Primary Care Provider] -
--- NOTE | 2017-07-02 13:44 | Discharge Summary ---
Date of Encounter: 07/02/17 Time of Encounter: 09:10 - Discharge Diagnosis (1) TIA (transient ischemic attack) Priority: Primary Status: Resolved Qualifiers: Transient cerebral ischemia type: unspecified Qualified Code(s): G45.9 - Transient cerebral ischemic attack, unspecified (2) Diabetes Priority: Secondary Status: Acute Qualifiers: Diabetes mellitus type: type 2 Diabetes mellitus complication status: with neurologic complications Diabetes mellitus complication detail: with other neurological complication Diabetes mellitus terminologist insulin use: without terminologist use Qualified Code(s): E11.49 - Type 2 diabetes mellitus with other diabetic neurological complication (3) Tremor Priority: Secondary Status: Acute - Discharge Medications Home Medications: GlipiZIDE [Glipizide ER] 10 mg PO 1400 03/08/17 [History] Metformin HCl [Metformin HCl ER] 1,000 mg PO BID 03/08/17 [History] Aspirin 325 mg PO DAILY tab 03/11/17 [Rx] Atorvastatin [Lipitor] 40 mg PO HS #30 tab 03/11/17 [Rx] Alogliptin Benzoate [Alogliptin] 25 mg PO DAILY 07/01/17 [History] Folic Acid/Multivit-Min/Lutein [Adult Multivitamin Gummies] 2 each PO DAILY [History] Allergies/Adverse Reactions: 3 Allergy/AdvReac Type Severity Reaction Status Date / Time No Known Allergies Allergy Verified 07/01/17 21:49 Procedures/tests Complete & Pending: Procedures Performed prior 72 hours Category Date Time Status MR head/brain wo con [MR] Routine MRI 07/02/17 04:05 Completed Date of admission: 07/02/17 00:05 Primary care physician: Elizabeth Borja, Consults: 07/02/17 02:18 Consult to Speech Therapy [CONS] Routine Comment: Evaluate, develop and implement POC Reason for Consult: failed dysphagia screening due to facial asymmetry Call Completed: No 07/02/17 03:17 Consult to Neurology [CONS] Stat Consulting Provider: [facility] Reason for Consult: TIA vs CVA Call Completed: No Discharging clinician: Mart العلي Anticipated date of discharge: 07/02/17 - Patient Status Disposition: Home, Self-Care Condition: Good Functional capacity at discharge: independent ambulation Overall status at discharge: patient is back to baseline - Discharge Instructions Instructions: Transient Ischemic Attack (DC), Diabetes Mellitus Type 2 in Adults (DC) Follow Up With: Elizabeth Borja MD [Primary Care Provider] - 07/11/17 9:40 am (in 1-2 weeks) Bryson Carlson MD [Partnered Physician] - 07/15/17 7:30 am () - Diet and Activity Activity: increase activity as tolerated Diet: diabetic diet, low fat, low cholesterol, low salt diet Hospital course: Ms. Head is a 37 year old female patient with history of recent CVA in the brainstem with no residual affects presented to the ER with complaints of right- sided tremor. She also complained of worsening left facial droop. Her symptoms had subsided by the time she came to the ER. She was evaluated in the ER with a CT scan which did not show any acute process. She was then hospitalized for further evaluation. She underwent MRI of the brain which did not show any acute stroke. She had some chronic scattered foci of hyperintensity which were nonspecific. Neurology was consulted with suspicion of possible partial seizure. However per their evaluation, they do not believe that the patient had any foci for partial seizures. The MRI of the brain did not show any infarcts at the site of her prior stroke. She did have loss of normal signal void within the left vertebral artery which could possibly be due to congenital arterial abnormality. Neurology has cleared the patient for discharge at this time. She will be discharged home today. - Time Spent with Patient Total time spent providing and/or coordinating discharge services: Less than 30 minutes (25 min) - Constitutional Vitals: Temp Pulse Resp BP Pulse Ox 98.3 F 84 17 97/57 96 07/02/17 11:18 07/02/17 11:18 07/02/17 11:18 07/02/17 11:18 07/02/17 11:18 General appearance: Present: cooperative, A&O X 3, pleasant, no acute distress, answers questions appropriately - Respiratory Respiratory exam: Present: CTAB. Absent: accessory muscle use, rales, rhonchi, wheezes - Cardiovascular Cardiovascular exam: Present: RRR, +S1, +S2. Absent: diastolic murmur, gallop, rubs, systolic murmur - GI/Abdominal GI/Abdominal exam: Present: normal bowel sounds, soft, no peritoneal signs. Absent: distended, tenderness - Extremities Exam Extremities exam: Present: warm, radial pulses palpable and symmetrical. Absent : calf tenderness, cyanotic, pedal edema - Neurological Exam Neurological exam: Present: alert, CN II-XII intact, oriented X3, no focal deficits, strengths equal and symetr throughout. Absent: facial droop, speech deficit - Skin Skin exam: Present: dry, intact
[2017-07-02] MEDS ORDERED: Insulin LISPRO 300 UNITS/3 ML VIAL SQ SCH (21:00)
--- NOTE | 2017-07-03 19:27 | Electrocardiograph Report ---
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
== END 2017-07-02 14:20 | disposition home or self-care (01) ==
LOC: 3BNU 21:49 → EMEROO 21:49 → 3BNU 07-02 00:50
PROVIDERS: ADMIT Registered Nurse; ATTEND Registered Nurse